=== PATIENT | male | born 1990 ===

== ENCOUNTER 2018-04-19 13:11 | Emergency (ER) | payer MEDICAID ==
--- NOTE | 2018-04-19 14:15 | ED PDOC ---
HPI: Headache Time Seen by Provider: 04/19/18 14:01 Chief Complaint (Nursing): Headache Chief Complaint (Provider): Headache History Per: Patient History/Exam Limitations: no limitations Preceeding Symptoms: None Additional Complaint(s): Pt reports generalized CUELLO X 2 days, had 2 minute episode of bilateral hand numbness yesterday that resolved on its own, did not take any pain medication. CUELLO worse when he looks up or moves head. Denies fever, neck stiffness, visual changes, photophobia. Also c/o bump to L groin X 2 days. Past Medical History Reviewed: Nursing Documentation, Vital Signs Vital Signs: Last Vital Signs Temp 99.3 F 04/19/18 13:51 Pulse 91 H 04/19/18 13:51 Resp 18 04/19/18 13:51 BP 152/86 H 04/19/18 13:51 Pulse Ox 99 04/19/18 13:51 - Medical History PMH: Asthma - Surgical History Surgical History: No Surg Hx - Family History Family History: States: Unknown Family Hx - Living Arrangements Living Arrangements: With Family - Social History Current smoker - smoking cessation education provided: No Alcohol: Social - Home Medications Home Medications: Ambulatory Orders Medication Instructions Recorded Naproxen [Naprosyn] 500 mg PO BID PRN #15 tablet 04/19/18 - Allergies Allergies/Adverse Reactions: Allergies Allergy/AdvReac Type Severity Reaction Status Date / Time No Known Allergies Allergy Verified 04/19/18 13:50 Review of Systems Constitutional: Negative for: Fever, Chills, Weakness, Malaise, Weight loss Eyes: Negative for: Vision Change, Eyelid Inflammation, Redness Cardiovascular: Negative for: Chest Pain, Palpitations Respiratory: Negative for: Cough, Shortness of Breath Gastrointestinal: Negative for: Nausea, Vomiting, Abdominal Pain, Diarrhea Genitourinary Male: Negative for: Dysuria, Frequency, Incontinence, Hematuria, Penile Discharge, Scrotal Pain, Rash, Penile Pain Musculoskeletal: Negative for: Neck Pain, Back Pain Skin: Negative for: Rash, Lesions Neurological: Positive for: Numbness, Headache. Negative for: Weakness, Incoordination, Change in Speech, Confusion, Seizures, Altered Mental Status, Dizziness Physical Exam - Reviewed Nursing Documentation Reviewed: Yes Vital Signs Reviewed: Yes - Physical Exam Appears: Positive for: Well, No Acute Distress Head Exam: Positive for: ATRAUMATIC, NORMAL INSPECTION Skin: Positive for: Normal Color, Warm, Dry Eye Exam: Positive for: Normal appearance, EOMI, PERRL. Negative for: Conjunctival injection Neck: Positive for: Normal, Painless ROM, Supple Cardiovascular/Chest: Positive for: Regular Rate, Rhythm Respiratory: Positive for: Normal Breath Sounds. Negative for: Rales, Rhonchi, Wheezing Gastrointestinal/Abdominal: Positive for: Normal Exam, Bowel Sounds, Soft. Negative for: Tenderness, Guarding, Rebound Back: Positive for: Normal Inspection. Negative for: L CVA Tenderness, R CVA Tenderness Extremity: Positive for: Normal ROM Lymphatic: Positive for: Inguinal Node Tenderness (L) Neurologic/Psych: Positive for: Alert, speech pathologist assistant II-XII, Oriented, Cerebellar Tests ( WNL). Negative for: Motor/Sensory Deficits, Aphasia, Facial Droop - Laboratory Results Result Diagrams: 04/19/18 14:30 04/19/18 14:30 - ECG O2 Sat by Pulse Oximetry: 99 Medical Decision Making Medical Decision Makin yo male with CUELLO and L inguinal adenopathy. - labs - CT head Accession No. : [id number] Patient Name / ID : ANEESH FAN / [id number] Exam Date : 04/19/2018 14:41:49 ( Approved ) Study Comment : Sex / Age : M / 27Y Creator : Jim Montague MD Dictator : Platform Material Handling Supervisor : Backend Developer : Jim Montague MD Approver2 : Report Date : 04/19/2018 15:20:17 My Comment : Date of service: 04/19/2018 PROCEDURE: CT HEAD WITHOUT CONTRAST. HISTORY: CUELLO COMPARISON: None available. TECHNIQUE: Axial computed tomography images were obtained through the head/brain without intravenous contrast. Radiation dose: Total exam DLP = 11.53 mGy-cm. This CT exam was performed using one or more of the following dose reduction techniques: Automated exposure control, adjustment of the mA and/or kV according to patient size, and/or use of iterative reconstruction technique. FINDINGS: HEMORRHAGE: No intracranial hemorrhage. BRAIN: No evidence of large acute infarct. Note that the possibility of a small hyperacute infarct cannot be excluded based on this exam. Prominent cisterna magna particularly the left wing. . VENTRICLES: Unremarkable. No hydrocephalus. CALVARIUM: Unremarkable. PARANASAL SINUSES: Unremarkable as visualized. No significant inflammatory changes. MASTOID AIR CELLS: Unremarkable as visualized. No inflammatory changes. OTHER FINDINGS: None. IMPRESSION: No acute intracranial hemorrhage. Mildly enlarged cisterna magna. Accession No. : [id number] Patient Name / ID : ANEESH FAN / [id number] Exam Date : 04/19/2018 14:43:56 ( Approved ) Study Comment : Sex / Age : M / 27Y Creator : Jim Montague MD Dictator : Platform Material Handling Supervisor : Backend Developer : Jim Montague MD Approver2 : Report Date : 04/19/2018 15:26:20 My Comment : Date of service: 04/19/2018 PROCEDURE: CT Cervical Spine without contrast HISTORY: Bilateral hand numbness yesterday COMPARISON: None available. TECHNIQUE: Axial computed tomography images were obtained of the cervical spine without the use of intravenous contrast. Coronal and sagittal reformatted images were created and reviewed. Radiation dose: Total exam DLP = 472.89 mGy-cm. This CT exam was performed using one or more of the following dose reduction techniques: Automated exposure control, adjustment of the mA and/or kV according to patient size, and/or use of iterative reconstruction technique. FINDINGS: VERTEBRAE: No evidence of acute compression fractures no retropulsed fragments. Vertebral bodies exhibit normal stature. There is very slight kyphotic angulation deformity centered at the C4-C5 level which could be secondary to patient positioning gantry however underlying element of mild muscle spasm may contribute. DISCS/SPINAL CANAL/NEURAL FORAMINA: No significant central canal or neural foraminal stenosis. Discs heights are grossly preserved. PARASPINAL SOFT TISSUES: Unremarkable. OTHER FINDINGS: None. IMPRESSION: No acute fractures. Minimal kyphotic angulation deformity centered at C4-C5 level could be secondary to patient positioning gantry however underlying element of muscle spasm may contribute. 16:50 Pt ate meal without difficulty, feels better. Disposition - Clinical Impression Clinical Impression: Acute headache - Disposition Referrals: [facility] [Outside] Disposition: Routine/Home Disposition Time: 17:10 Condition: IMPROVED Prescriptions: Naproxen [Naprosyn] 500 mg PO BID PRN #15 tablet PRN Reason: Pain, Moderate (4-7) Instructions: Acute Headache (ED) Forms: [employer] (Sami)
[2018-04-19] MEDS ORDERED: Sodium Chloride 0.9% 1,000 ML IV STA (14:26)
[2018-04-19 14:49] LABS: BASO % 0.3 % (0.0-2.0); EOS % 0.1 % (0.0-4.0); HEMOGLOBIN 15.8 g/dL (12.0-18.0); LYMPH # 0.8 K/uL (1.0-4.3); LYMPH % 14.1 % (20.0-40.0); MEAN CORPUSCULAR HEMOGLOBIN 30.3 pg (27.0-31.0); MEAN CORPUSCULAR HGB CONC 34.4 g/dL (33.0-37.0); MEAN PLATELET VOLUME 8.6 fl (7.2-11.7); MONO # 0.8 K/uL (0.0-0.8); MONO % 14.7 % (0.0-10.0); NEUT # 4.1 K/uL (1.8-7.0); NEUT % 70.8 % (50.0-75.0); NRBC % 0.2 % (0.0-0.0); RBC 5.22 Mil/uL (4.40-5.90); RED CELL DISTRIBUTION WIDTH 13.1 % (11.5-14.5); WHITE BLOOD COUNT 5.8 K/uL (4.8-10.8)
[2018-04-19 15:04] LABS: INR 1.1 (0.9-1.2); PARTIAL THROMBOPLASTIN TIME 28.6 Seconds (25.6-37.1); PROTHROMBIN TIME 12.5 Seconds (9.8-13.1)
[2018-04-19 15:05] LABS: ALB/GLOB RATIO 1.3 (1.0-2.1); ALBUMIN 4.5 g/dL (3.5-5.0); ALT/SGPT 52 U/L (21-72); AST/SGOT 35 U/L (17-59); BLOOD UREA NITROGEN 15 mg/dl (9-20); CALCIUM 9.7 mg/dL (8.4-10.2); GFR AFRICAN-AMERICAN > 60; GFR NON-AFRICAN AMERICAN > 60
--- NOTE | 2018-04-19 15:22 | CT ---
Date of service: 04/19/2018 PROCEDURE: CT HEAD WITHOUT CONTRAST. HISTORY: CUELLO COMPARISON: None available. TECHNIQUE: Axial computed tomography images were obtained through the head/brain without intravenous contrast. Radiation dose: Total exam DLP = 11.53 mGy-cm. This CT exam was performed using one or more of the following dose reduction techniques: Automated exposure control, adjustment of the mA and/or kV according to patient size, and/or use of iterative reconstruction technique. FINDINGS: HEMORRHAGE: No intracranial hemorrhage. BRAIN: No evidence of large acute infarct. Note that the possibility of a small hyperacute infarct cannot be excluded based on this exam. Prominent cisterna magna particularly the left wing. . VENTRICLES: Unremarkable. No hydrocephalus. CALVARIUM: Unremarkable. PARANASAL SINUSES: Unremarkable as visualized. No significant inflammatory changes. MASTOID AIR CELLS: Unremarkable as visualized. No inflammatory changes. OTHER FINDINGS: None. IMPRESSION: No acute intracranial hemorrhage. Mildly enlarged cisterna magna.
--- NOTE | 2018-04-19 15:27 | CT ---
Date of service: 04/19/2018 PROCEDURE: CT Cervical Spine without contrast HISTORY: Bilateral hand numbness yesterday COMPARISON: None available. TECHNIQUE: Axial computed tomography images were obtained of the cervical spine without the use of intravenous contrast. Coronal and sagittal reformatted images were created and reviewed. Radiation dose: Total exam DLP = 472.89 mGy-cm. This CT exam was performed using one or more of the following dose reduction techniques: Automated exposure control, adjustment of the mA and/or kV according to patient size, and/or use of iterative reconstruction technique. FINDINGS: VERTEBRAE: No evidence of acute compression fractures no retropulsed fragments. Vertebral bodies exhibit normal stature. There is very slight kyphotic angulation deformity centered at the C4-C5 level which could be secondary to patient positioning gantry however underlying element of mild muscle spasm may contribute. DISCS/SPINAL CANAL/NEURAL FORAMINA: No significant central canal or neural foraminal stenosis. Discs heights are grossly preserved. PARASPINAL SOFT TISSUES: Unremarkable. OTHER FINDINGS: None. IMPRESSION: No acute fractures. Minimal kyphotic angulation deformity centered at C4-C5 level could be secondary to patient positioning gantry however underlying element of muscle spasm may contribute.
[2018-04-19 16:00] LABS: SQUAMOUS EPITHIAL < 1 /hpf (0-5); URINE BILIRUBIN NEGATIVE (NEGATIVE); URINE BLOOD SMALL (NEGATIVE); URINE CLARITY CLEAR (Clear); URINE COLOR YELLOW (YELLOW); URINE GLUCOSE (UA) NEG (Normal); URINE LEUKOCYTE ESTERASE NEG Leu/uL (Negative); URINE PROTEIN NEGATIVE (NEGATIVE); URINE UROBILINOGEN 0.2-1.0 mg/dL (0.2-1.0)
[2018-04-19 18:03] VITALS: BP 131/78; PULSE 78; RESP 16; TEMP 98.5
[2018-04-19 18:10] VITALS: O2SAT 99
== END 2018-04-19 18:03 | disposition home or self-care (01) ==
LOC: H.ER 13:11
DX: R51 Headache (principal)
CPT/HCPCS: 70450; 72125; 80053; 81003; 82948; 85025; 85610; 85730; 99285; J1885; J7030

== ENCOUNTER 2018-04-21 11:07 | Emergency (ER) | payer MEDICAID ==
[2018-04-21 11:22] VITALS: BMI 26.6
[2018-04-21 11:23] VITALS: O2SAT 98
[2018-04-21] MEDS ORDERED: Sodium Chloride 0.9% 1,000 ML IV STA (12:27)
--- NOTE | 2018-04-21 12:33 | ED PDOC ---
HPI: Headache Time Seen by Provider: 04/21/18 12:08 Chief Complaint (Nursing): Fever Chief Complaint (Provider): Headache History Per: Patient History/Exam Limitations: no limitations Onset/Duration Of Symptoms: Days (Friday) Current Symptoms Are (Timing): Still Present Additional Complaint(s): Pt. with headache since Friday. Seen in ER and dc with no findings. States had 2 min of b/l hands numbness. It went away on his own. Has fever also. When fever goes away with tylenol or motrin, the headache and neck pain goes away. Neck pain is on movement. No numbness or tingles currently. No abd pain , dysuria, cough, back pain. No dyspnea or chest pain. No vision changes or photophobia. Past Medical History Reviewed: Nursing Documentation, Vital Signs Vital Signs: Last Vital Signs Temp 101.5 F H 04/21/18 11:22 Pulse 97 H 04/21/18 11:22 Resp 17 04/21/18 11:22 BP 120/80 04/21/18 11:22 Pulse Ox 98 04/21/18 11:22 - Medical History PMH: Asthma - Surgical History Surgical History: No Surg Hx - Family History Family History: States: Unknown Family Hx - Living Arrangements Living Arrangements: With Family - Home Medications Home Medications: Ambulatory Orders Medication Instructions Recorded Naproxen [Naprosyn] 500 mg PO BID PRN #15 tablet 04/19/18 Ibuprofen [Motrin] 600 mg PO TID 7 Days tab 04/21/18 Metoclopramide HCl [Reglan] 10 mg PO DAILY PRN 5 Days tablet 04/21/18 - Allergies Allergies/Adverse Reactions: Allergies Allergy/AdvReac Type Severity Reaction Status Date / Time No Known Allergies Allergy Verified 04/19/18 13:50 Review of Systems ROS Statement: Except As Marked, All Systems Reviewed And Found Negative Constitutional: Positive for: Fever Musculoskeletal: Positive for: Neck Pain Neurological: Positive for: Numbness (gone now), Headache Physical Exam - Reviewed Nursing Documentation Reviewed: Yes Vital Signs Reviewed: Yes - Physical Exam Appears: Positive for: Non-toxic, No Acute Distress Head Exam: Positive for: ATRAUMATIC, NORMAL INSPECTION, NORMOCEPHALIC Skin: Positive for: Normal Color, Warm, DRY Eye Exam: Positive for: EOMI, Normal appearance, PERRL ENT: Positive for: Normal ENT Inspection. Negative for: Nasal Congestion, Pharyngeal Erythema Neck: Positive for: Normal, Painless ROM, Supple Cardiovascular/Chest: Positive for: Regular Rate, Rhythm Respiratory: Positive for: CNT, Normal Breath Sounds Gastrointestinal/Abdominal: Positive for: Normal Exam, Soft. Negative for: Tenderness Back: Positive for: Normal Inspection. Negative for: L CVA Tenderness, R CVA Tenderness Extremity: Positive for: Normal ROM. Negative for: Tenderness, Pedal Edema Neurologic/Psych: Positive for: Alert, cmv driver II-XII, Oriented. Negative for: Motor/Sensory Deficits, Aphasia, Facial Droop - Laboratory Results Result Diagrams: 04/21/18 12:55 04/21/18 12:55 Interpretation Of Abn Labs: no acute - ECG O2 Sat by Pulse Oximetry: 98 Pulse Ox Interpretation: Normal - Progress ED Course And Treament: 1654: Stable. AAOx3. Fu with pcp. No csf findings. Possible viral infection. Has no pain currently. Ambulated with no issues. Disposition - Clinical Impression Clinical Impression: Acute headache, Fever in adult - Patient ED Disposition Is Patient to be Admitted: No Counseled Patient/Family Regarding: Studies Performed, Diagnosis, Need For Followup, Rx Given - Disposition Referrals: [facility] [Outside] - 04/22/18 Disposition: Routine/Home Disposition Time: 16:56 Condition: STABLE Additional Instructions: Return if not better in 3 days. Prescriptions: Ibuprofen [Motrin] 600 mg PO TID 7 Days tab Metoclopramide HCl [Reglan] 10 mg PO DAILY PRN 5 Days tablet PRN Reason: Nausea/Vomiting Instructions: Acute Headache (ED), Fever, Adult (DC) Forms: [employer] (Spanish), [facility] ED School/Work Excuse
[2018-04-21 12:50] LABS: VENOUS BLOOD GAS BASE EXCESS 4.6 mmol/L (0.0-2.0); VENOUS BLOOD GAS PCO2 53 mmHg (40-60); VENOUS BLOOD GAS PO2 21 mm/Hg (30-55); VENOUS BLOOD PH 7.38 (7.32-7.43)
[2018-04-21 13:04] LABS: BASO % 0.6 % (0.0-2.0); HEMOGLOBIN 15.7 g/dL (12.0-18.0); LYMPH # 0.7 K/uL (1.0-4.3); LYMPH % 20.9 % (20.0-40.0); MEAN CORPUSCULAR HEMOGLOBIN 30.4 pg (27.0-31.0); MEAN CORPUSCULAR HGB CONC 35.4 g/dL (33.0-37.0); MEAN PLATELET VOLUME 8.9 fl (7.2-11.7); MONO # 0.4 K/uL (0.0-0.8); MONO % 10.7 % (0.0-10.0); NEUT # 2.3 K/uL (1.8-7.0); NEUT % 67.8 % (50.0-75.0); NRBC % 0.1 % (0.0-0.0); RBC 5.15 Mil/uL (4.40-5.90); WHITE BLOOD COUNT 3.5 K/uL (4.8-10.8)
[2018-04-21 13:16] LABS: ALB/GLOB RATIO 1.3 (1.0-2.1); ALBUMIN 4.4 g/dL (3.5-5.0); ALT/SGPT 70 U/L (21-72); AST/SGOT 104 U/L (17-59); BLOOD UREA NITROGEN 11 mg/dl (9-20); GFR AFRICAN-AMERICAN > 60; GFR NON-AFRICAN AMERICAN > 60
[2018-04-21 14:59] VITALS: PULSE 78; RESP 19
[2018-04-21 16:41] LABS: CSF APPEARANCE CLEAR/COLORLESS (CLEAR); CSF VOLUME 1 mL (0-1)
[2018-04-21 16:46] LABS: FLUID TYPE SPINAL FLUID
[2018-04-21 17:35] VITALS: BP 127/76; TEMP 97.7
== END 2018-04-21 17:37 | disposition home or self-care (01) ==
LOC: H.ER 11:07
DX: R51 Headache (principal); R50.9 Fever, unspecified
CPT/HCPCS: 80053; 82803; 82945; 84157; 85025; 87040; 87070; 89050; 96374; 99283; J1885; J7030